=== PATIENT | female | born 1975 | race Hispanic/Latino ===

== ENCOUNTER 2018-01-02 09:24 | Emergency (ER) | payer BC ==
[2018-01-02 09:42] VITALS: RESP 16
[2018-01-02] MEDS ORDERED: Sodium Chloride 0.9% 1,000 ML IV STA (09:55)
--- NOTE | 2018-01-02 10:08 | ED PDOC ---
HPI: Abdomen Time Seen by Provider: 01/02/18 09:38 Chief Complaint (Nursing): Abdominal Pain History Per: Patient Additional Complaint(s): Pt. states since 12/31/2017 she's had LLQ and suprapubic pain but greatest in LLQ. States she contacted Dr. Finn who advised her to come to ED for further evaluation. Reports pain is associated with nausea but no vomiting. Denies dysuria, hematuria, fever, diarrhea, constipation, chest pain. Past Medical History Reviewed: Historical Data, Nursing Documentation, Vital Signs Vital Signs: Last Vital Signs Temp 98.3 F 01/02/18 14:18 Pulse 74 01/02/18 14:18 Resp 16 01/02/18 14:18 BP 126/78 01/02/18 14:18 Pulse Ox 100 01/02/18 14:18 - Surgical History Other surgeries: L oopherectomy, laparascopy x 3 (endometriosis) - Family History Family History: States: No Known Family Hx - Home Medications Home Medications: Ambulatory Orders Medication Instructions Recorded Levothyroxine [Synthroid] 75 mcg PO DAILY 01/02/18 metFORMIN [glucOPHAGE] 500 mg PO BID 01/02/18 - Allergies Allergies/Adverse Reactions: Allergies Allergy/AdvReac Type Severity Reaction Status Date / Time gluten Allergy VOMITING Verified 01/02/18 10:16 lactase [From Dairy Aid] Allergy VOMITING Verified 01/02/18 10:16 shellfish derived Allergy ANAPHYLAXIS Verified 01/02/18 10:16 soy Allergy VOMITING Verified 01/02/18 10:16 paper tape Allergy URTICARIA Uncoded 01/02/18 10:16 Review of Systems ROS Statement: Except As Marked, All Systems Reviewed And Found Negative Gastrointestinal: Positive for: Nausea, Abdominal Pain Genitourinary Female: Positive for: Pelvic Pain Physical Exam - Physical Exam Appears: Positive for: Well, Non-toxic, No Acute Distress Skin: Positive for: Normal Color, Warm. Negative for: Rash Eye Exam: Positive for: Normal appearance Gastrointestinal/Abdominal: Positive for: Normal Exam, Soft, Tenderness ( moderate LLQ and suprapubic tenderness). Negative for: Distended, Guarding, Rebound Neurologic/Psych: Positive for: Alert, Oriented - Laboratory Results Result Diagrams: 01/02/18 10:15 01/02/18 10:15 - ECG ECG: Positive for: Interpreted By Me ECG Rhythm: Positive for: Sinus Bradycardia. Negative for: ST/T Changes Rate: 59 O2 Sat by Pulse Oximetry: 97 - Radiology X-Ray: Read By Radiologist (CXR) X-Ray Interpretation: No Acute Disease - Progress ED Course And Treament: Case d/w Dr. Finn who requests that pt. be prepped for the OR today and does not want any imaging tests at this time. Labs, EKG, CXR, IV NS hydration ordered. Pt. kept NPO. Pt. informed of plan and agrees. Offered antiemetics but refused. States she gets panic attacks from Zofran. 1045 Dr. Finn in ED and evaluated pt. [address] Finn who is requesting that pt. be given scopolamine patch for nausea. Scopolamine patch ordered. [address] Finn there currently technical difficulties in OR therefore pt. will be transferred to [facility] under his care and he will also be the receiving physician. 1311 Pt. aware of plan and agrees with care. Consent for transfer obtained and signed by patient. Disposition - Clinical Impression Clinical Impression: Abdominal pain, Pelvic pain - Patient ED Disposition Is Patient to be Admitted: Yes - Disposition Disposition: Other Institution ([facility]) Disposition Time: 10:00 Condition: STABLE
[2018-01-02 10:25] LABS: BASO % 0.8 % (0.0-2.0); EOS # 0.1 K/uL (0.0-0.7); EOS % 1.7 % (0.0-4.0); HEMOGLOBIN 13.1 g/dL (12.0-16.0); LYMPH % 31.3 % (20.0-40.0); MEAN CELL VOLUME 87.1 fl (81.0-99.0); MEAN CORPUSCULAR HEMOGLOBIN 29.5 pg (27.0-31.0); MEAN CORPUSCULAR HGB CONC 33.8 g/dL (33.0-37.0); MEAN PLATELET VOLUME 10.2 fl (7.2-11.7); MONO # 0.5 K/uL (0.0-0.8); MONO % 7.7 % (0.0-10.0); NEUT # 3.7 K/uL (1.8-7.0); NEUT % 58.5 % (50.0-75.0); NRBC % 0.1 % (0.0-0.0); RBC 4.46 Mil/uL (3.80-5.20); RED CELL DISTRIBUTION WIDTH 13.2 % (11.5-14.5); WHITE BLOOD COUNT 6.3 K/uL (4.8-10.8)
[2018-01-02 10:33] LABS: PARTIAL THROMBOPLASTIN TIME 32.9 Seconds (25.6-37.1); PROTHROMBIN TIME 11.6 Seconds (9.8-13.1)
[2018-01-02 10:40] LABS: ALB/GLOB RATIO 1.5 (1.0-2.1); ALBUMIN 4.5 g/dL (3.5-5.0); ALT/SGPT 25 U/L (9-52); AST/SGOT 26 U/L (14-36); BLOOD UREA NITROGEN 16 mg/dl (7-17); CALCIUM 9.4 mg/dL (8.4-10.2); GFR AFRICAN-AMERICAN > 60; GFR NON-AFRICAN AMERICAN > 60
--- NOTE | 2018-01-02 11:30 | RAD ---
HISTORY: clearance COMPARISON: No prior. FINDINGS: LUNGS: No active pulmonary disease. PLEURA: No significant pleural effusion identified, no pneumothorax apparent. CARDIOVASCULAR: Normal. OSSEOUS STRUCTURES: No significant abnormalities. VISUALIZED UPPER ABDOMEN: Normal. OTHER FINDINGS: None. IMPRESSION: No active disease.
[2018-01-02 11:31] LABS: SQUAMOUS EPITHIAL 1 /hpf (0-5); URINE BILIRUBIN NEGATIVE (NEGATIVE); URINE BLOOD NEGATIVE (NEGATIVE); URINE CLARITY SLIGHTY-CLOUDY (Clear); URINE COLOR YELLOW (YELLOW); URINE GLUCOSE (UA) NEG (Normal); URINE LEUKOCYTE ESTERASE NEG Leu/uL (Negative); URINE PROTEIN NEGATIVE (NEGATIVE); URINE UROBILINOGEN 0.2-1.0 mg/dL (0.2-1.0)
[2018-01-02 13:54] VITALS: BP 126/78; TEMP 98.3
[2018-01-02 14:52] VITALS: PULSE 59; O2SAT 97
[2018-01-02 20:22] VITALS: BMI 29.7
--- NOTE | 2018-01-05 11:07 | CARD ---
APPROVED REPORT EKG Measurement Heart [id number] NC 140P34 [id number] <Conclusion> Sinus bradycardia Otherwise normal ECG
== END 2018-01-02 14:21 | disposition home or self-care (01) ==
LOC: H.ER 09:24 → UNDOADMIN 10:03 → H.ERHOLD 10:03 → UNDODISIN 14:21 → H.ER 14:21
DX: R10.32 Left lower quadrant pain (principal); R10.2 Pelvic and perineal pain
CPT/HCPCS: 71045; 80053; 81003; 81025; 85025; 85610; 85730; 86850; 86900; 93005; 99283; J7030

== ENCOUNTER 2018-11-04 08:08 | Inpatient (IN) | payer BC ==
[2018-11-04 08:13] VITALS: BMI 32.4
[2018-11-04] MEDS ORDERED: Sodium Chloride 0.9% 1,000 ML IV STA (08:31)
--- NOTE | 2018-11-04 08:35 | ED PDOC ---
HPI: Abdomen Time Seen by Provider: 11/04/18 08:16 History Per: Patient Onset/Duration Of Symptoms: Days (3) Current Symptoms Are (Timing): Still Present Severity: Moderate Location Of Pain/Discomfort: Periumbilical Associated Symptoms: Nausea. denies: Vomiting, Diarrhea Exacerbating Factors: Movement, Other (BM) Alleviating Factors: None Last Bowel Movement: Days Ago (3) Additional Complaint(s): Reffetred by PMD for right periumbilical pain assoc with nausea which has gotten worse over past 3 days. Denies vomiting or diarrhea. Last BM Friday but ias able to pass gas. Pt has h/o ventral hernia, PMD feels that it is now incarcerated. Pt also has h/o endometriosis as well as umbilical reconstruction. Pt also describes discharge from umbilicus. Past Medical History Vital Signs: Last Vital Signs Temp 97.8 F 11/04/18 08:11 Pulse 88 11/04/18 08:11 Resp 20 11/04/18 08:11 BP 136/84 11/04/18 08:11 Pulse Ox 96 11/04/18 08:11 - Medical History Other PMH: Endometriosis - Surgical History Other surgeries: Umbilical reconstruction - Family History Family History: States: Unknown Family Hx - Home Medications Home Medications: Ambulatory Orders Medication Instructions Recorded Levothyroxine [Synthroid] 75 mcg PO DAILY 01/02/18 metFORMIN [glucOPHAGE] 500 mg PO BID 01/02/18 - Allergies Allergies/Adverse Reactions: Allergies Allergy/AdvReac Type Severity Reaction Status Date / Time gluten Allergy VOMITING Verified 11/04/18 08:35 lactase [From Dairy Aid] Allergy VOMITING Verified 11/04/18 08:35 shellfish derived Allergy ANAPHYLAXIS Verified 11/04/18 08:35 soy Allergy VOMITING Verified 11/04/18 08:35 ondansetron [From Zofran] AdvReac Intermediate DIZZINESS Verified 11/04/18 08:35 paper tape Allergy URTICARIA Uncoded 11/04/18 08:35 Review of Systems Constitutional: Negative for: Fever Gastrointestinal: Positive for: Nausea, Abdominal Pain, Constipation. Negative for: Vomiting, Diarrhea Genitourinary Female: Negative for: Dysuria, Frequency Physical Exam - Reviewed Nursing Documentation Reviewed: Yes Vital Signs Reviewed: Yes - Physical Exam Appears: Positive for: Well, Non-toxic, No Acute Distress Head Exam: Positive for: ATRAUMATIC, NORMAL INSPECTION, NORMOCEPHALIC Skin: Positive for: Normal Color, Warm, DRY Eye Exam: Positive for: Normal appearance Gastrointestinal/Abdominal: Positive for: Tenderness (Tenderness right periumbilical area with protrusion of ventral hernia when coughing or increasing intra-abdominal pressure.) Back: Positive for: Normal Inspection Extremity: Positive for: Normal ROM Neurological/Psych: Positive for: Awake, Alert, Normal Tone - Laboratory Results Result Diagrams: 11/04/18 08:52 11/04/18 08:52 - ECG O2 Sat by Pulse Oximetry: 96 Disposition - Clinical Impression Clinical Impression: Ventral hernia - Patient ED Disposition Is Patient to be Admitted: Yes - Disposition Disposition Time: 12:51 Condition: FAIR - Pt Status Changed To: Hospital Disposition Of: Inpatient - Admit Certification Admit to Inpatient:: After my assessment, the patient will require hospitalization for at least two midnights. This is because of the severity of symptoms shown, intensity of services needed, and/or the medical risk in this patient being treated as an outpatient. - POA Present On Arrival: None
[2018-11-04 09:08] LABS: BASO % 0.7 % (0.0-2.0); EOS # 0.1 K/uL (0.0-0.7); EOS % 1.4 % (0.0-4.0); HEMOGLOBIN 13.9 g/dL (12.0-16.0); LYMPH # 2.4 K/uL (1.0-4.3); LYMPH % 34.4 % (20.0-40.0); MEAN CORPUSCULAR HEMOGLOBIN 29.6 pg (27.0-31.0); MEAN PLATELET VOLUME 10.6 fl (7.2-11.7); MONO # 0.5 K/uL (0.0-0.8); MONO % 7.9 % (0.0-10.0); NEUT # 3.8 K/uL (1.8-7.0); NEUT % 55.6 % (50.0-75.0); NRBC % 0.2 % (0.0-0.0); RBC 4.71 Mil/uL (3.80-5.20); RED CELL DISTRIBUTION WIDTH 12.5 % (11.5-14.5); WHITE BLOOD COUNT 6.8 K/uL (4.8-10.8)
[2018-11-04 09:15] LABS: ALB/GLOB RATIO 1.5 (1.0-2.1); ALBUMIN 4.5 g/dL (3.5-5.0); ALT/SGPT 27 U/L (9-52); AST/SGOT 24 U/L (14-36); BLOOD UREA NITROGEN 14 mg/dl (7-17); CALCIUM 9.7 mg/dL (8.4-10.2); GFR NON-AFRICAN AMERICAN > 60
--- NOTE | 2018-11-04 12:29 | US ---
Date of service: 11/04/2018 PROCEDURE: Limited abdominal ultrasound HISTORY: Right periumbilical hernia, r/o incarceration COMPARISON: None TECHNIQUE: Standard protocol for this study/examination. FINDINGS: LIVER: By history there is a periumbilical hernia. At the site of the anatomic findings on physical examination labeled "right periumbilical area" is a fluid-filled soft tissue mass 4.7 x 5.8 cm. This likely represents herniated loop of bowel. Peristalsis was not identified. IMPRESSION: Right periumbilical soft tissue mass likely herniated bowel. Follow-up recommendation: CT scan of the abdomen and pelvis for confirmation.
--- NOTE | 2018-11-04 12:56 | CARD ---
APPROVED REPORT Date of service: 11/04/2018 EKG Measurement Heart [id number] [place] 148P27 [id number] <Conclusion> Normal sinus rhythm Normal ECG
[2018-11-04] MEDS ORDERED: Trimethobenzamide 200 mg/2 mL Inj IM ONE ×2 (13:13→13:31)
[2018-11-04] MEDS ORDERED: Bupivacaine HCl 0.25% PF (30 ml) Inj ONE (13:16)
[2018-11-04] MEDS ORDERED: Bupivacaine 0.5% Inj(30mL) ONE (13:16)
[2018-11-04] MEDS ORDERED: Succinylcholine Chloride 20 mg/ml Syr (5 ml) IV ONE (13:56)
[2018-11-04] MEDS ORDERED: Lidocaine 4% (Laryng-O-Jet) Kit MM ONE (13:56)
[2018-11-04] MEDS ORDERED: Rocuronium 10 mg/ml (5 ml) ONE (13:56)
[2018-11-04] MEDS ORDERED: Propofol 10 mg/ml Inj (20 ML) ONE (13:56)
[2018-11-04 14:08] LABS: INR 1.1; PROTHROMBIN TIME 12.7 Seconds (9.8-13.1)
[2018-11-04 14:11] LABS: PARTIAL THROMBOPLASTIN TIME 36.8 Seconds (25.6-37.1)
[2018-11-04] MEDS ORDERED: Midazolam 2 MG/2 ML VIAL ONE (14:17)
[2018-11-04] MEDS ORDERED: Lactated Ringer's 1,000 ML IV ONE ×4 (14:20→17:30)
--- NOTE | 2018-11-04 14:26 | RAD ---
Date of service: 11/04/2018 HISTORY: cough COMPARISON: 01/02/2018 TECHNIQUE: 1 view obtained. FINDINGS: LUNGS: No active pulmonary disease. PLEURA: No significant pleural effusion identified, no pneumothorax apparent. CARDIOVASCULAR: No aortic atherosclerotic calcification present. Normal cardiac size. No pulmonary vascular congestion. OSSEOUS STRUCTURES: No significant abnormalities. VISUALIZED UPPER ABDOMEN: Normal. OTHER FINDINGS: None. IMPRESSION: No active disease. No interval pathology noted.
[2018-11-04] MEDS ORDERED: Dexamethasone 4 mg/1 ml ONE (14:59)
[2018-11-04] MEDS ORDERED: Desflurane Inhalation Anesthetic Liq (240 ml) ONE (15:35)
[2018-11-04] MEDS ORDERED: Bupivacaine 0.25% 300 ML in Sodium Chloride 0.9% 300 ML IS ONE ×3 (15:36→20:00)
[2018-11-04] MEDS: HYDROmorphone 0.5 mg/0.5 ml ISec IVP PRN ×6 (18:32→20:47)
[2018-11-04] MEDS ORDERED: HYDROmorphone 0.5 mg/0.5 ml ISec ONE ×5 (18:32→19:05)
[2018-11-04] MEDS ORDERED: Lactated Ringer's 1,000 ML IV SCH (18:45)
--- NOTE | 2018-11-04 18:45 | PCM.SURG1 ---
Surgeon's Initial Post Op Note - Surgeon's Notes Surgeon: Dr. Hernan Ceja Fat Purification Worker: Eileen Dangelo, PGY-2 Type of Anesthesia: General Endo Anesthesia Administered By: Dr. Man Pre-Operative Diagnosis: Incarcerated incisional ventral hernia Operative Findings: Incarcerated incisional ventral hernia Post-Operative Diagnosis: Incarcerated incision ventral hernia Operation Performed: Component separation, reduction of incarcerated incisional ventral hernia, [place] Stoppa retrorectus hernia repair, with drain placement and OnQ placement Specimen/Specimens Removed: exces abdominal wall Estimated Blood Loss: EBL {In ML}: 300 Blood Products Given: N/A Drains Used: Shawn Guevara (x2) Post-Op Condition: Fair Date of Surgery/Procedure: 11/04/18 Time of Surgery/Procedure: 18:45
[2018-11-04] MEDS ORDERED: SODIUM CHLORIDE 0.9% IS ONE (18:59)
[2018-11-04] MEDS ORDERED: BUPIVACAINE 0.25% IS ONE (18:59)
[2018-11-04] MEDS ORDERED: Dextrose 50% SYRINGE Inj (50 ml) IV PRN (19:11)
[2018-11-04] MEDS ORDERED: Glucagon Recombinant 1 mg Inj IM PRN (19:11)
[2018-11-04] MEDS: ceFAZolin 2 GM in Sodium Chloride 0.9% 100 ML IVPB SCH (22:12)
[2018-11-04] MEDS: Potassium Ch 20mEq in D5-1/2NS 1,000 ML IV SCH (23:00)
[2018-11-04] MEDS ORDERED: DiphenhydrAMINE 50 mg/ml Inj IVP STA (23:05)
[2018-11-05] MEDS: Insulin Regular 100 units/ml SC SCH ×3 (06:21→12:17)
[2018-11-05] MEDS: Potassium Ch 20mEq in D5-1/2NS 1,000 ML IV SCH (06:29)
[2018-11-05] MEDS: Levothyroxine 75 MCG TAB PO SCH (06:33)
[2018-11-05 07:06] LABS: BASO % 0.2 % (0.0-2.0); EOS % 0.1 % (0.0-4.0); LYMPH # 1.8 K/uL (1.0-4.3); LYMPH % 14.9 % (20.0-40.0); MEAN CELL VOLUME 87.3 fl (81.0-99.0); MEAN CORPUSCULAR HEMOGLOBIN 29.2 pg (27.0-31.0); MEAN CORPUSCULAR HGB CONC 33.5 g/dL (33.0-37.0); MEAN PLATELET VOLUME 10.5 fl (7.2-11.7); MONO % 8.1 % (0.0-10.0); NEUT # 9.5 K/uL (1.8-7.0); NEUT % 76.7 % (50.0-75.0); RBC 3.77 Mil/uL (3.80-5.20); RED CELL DISTRIBUTION WIDTH 12.5 % (11.5-14.5); WHITE BLOOD COUNT 12.4 K/uL (4.8-10.8)
[2018-11-05 07:22] LABS: ALB/GLOB RATIO 1.4 (1.0-2.1); ALBUMIN 3.5 g/dL (3.5-5.0); ALT/SGPT 29 U/L (9-52); AST/SGOT 25 U/L (14-36); BLOOD UREA NITROGEN 14 mg/dl (7-17); CALCIUM 8.3 mg/dL (8.4-10.2); GFR NON-AFRICAN AMERICAN > 60
--- NOTE | 2018-11-05 07:58 | CP.PCM.PN ---
Subjective - Date & Time of Evaluation Date of Evaluation: 11/05/18 Time of Evaluation: 07:30 - Subjective Subjective: Plastic/General surgery/Obgyn progress note for Dr. Becerra, Dr. Finn, and Dr. Jennie Dangelo, PGY-2 Pt seen/examined at bedside Pt reports some pain overnight, was asking for Toradol overnight. Voiding overnight with assistance to get up out of bed. Denies N & V, tolerating sips and chips. Objective - Vital Signs/Intake and Output Vital Signs (last 24 hours): Temp Pulse Resp BP Pulse Ox 97.9 F 81 18 121/74 98 11/05/18 01:00 11/05/18 01:00 11/05/18 01:37 11/05/18 01:00 11/05/18 01:37 Intake and Output: 11/05/18 11/05/18 06:59 18:59 Intake Total 1440 Output Total 35 60 Balance -35 1380 - Medications Medications: Current Medications Dextrose (Dextrose 50% Inj) 0 ml IV STAT PRN; Protocol PRN Reason: Hypoglycemia Protocol Dextrose (Glutose 15) 0 gm PO ONCE PRN; Protocol PRN Reason: Hypoglycemia Protocol Fluconazole (Diflucan) 200 mg PO DAILY [facility]; Protocol Fluticasone Propionate (Flonase) 1 spr ROBERT BID [facility] Last Admin: 11/04/18 20:00 Dose: 1 spr Glucagon (Glucagen Diagnostic Kit) 0 mg IM STAT PRN; Protocol PRN Reason: Hypoglycemia Protocol Hydromorphone HCl (Dilaudid) 1 mg IVP Q4 PRN PRN Reason: Pain, severe (8-10) Last Admin: 11/05/18 04:05 Dose: 1 mg Acetaminophen (Ofirmev) 100 mls @ 400 mls/hr IVPB Q6H [facility]; Protocol Stop: 11/05/18 13:16 Last Admin: 11/05/18 06:41 Dose: 400 mls/hr Cefazolin Sodium 2 gm/ Sodium (Chloride) 100 mls @ 100 mls/hr IVPB Q12 [facility]; Protocol Stop: 11/05/18 21:01 Last Admin: 11/04/18 22:12 Dose: 100 mls/hr Potassium Chloride/Dextrose/Sod Cl (Potassium Chl 20 Meq In D5-1/2ns) 1,000 mls @ 125 mls/hr IV .Q8H [facility] Last Admin: 11/05/18 06:29 Dose: 125 mls/hr Bupivacaine HCl 300 ml/ Sodium (Chloride) 600 mls @ 3 mls/hr IS .Q24H ONE Stop: 11/05/18 19:59 Last Admin: 11/04/18 20:19 Dose: 0 mls Insulin Human Regular (Humulin R) 0 units SC Q6H [facility]; Protocol Last Admin: 11/05/18 06:21 Dose: Not Given Levothyroxine Sodium (Synthroid) 75 mcg PO DAILY@0630 [facility] Last Admin: 11/05/18 06:33 Dose: Not Given - Labs Labs: 11/05/18 06:30 11/05/18 06:30 PT 12.7 Seconds (9.8-13.1) 11/04/18 13:55 INR 1.1 11/04/18 13:55 APTT 36.8 Seconds (25.6-37.1) 11/04/18 13:55 - Constitutional Appears: Non-toxic, No Acute Distress - Head Exam Head Exam: ATRAUMATIC, NORMAL INSPECTION, NORMOCEPHALIC - Eye Exam Eye Exam: EOMI, Normal appearance - ENT Exam ENT Exam: Mucous Membranes Moist, Normal Exam - Neck Exam Neck Exam: Full ROM, Normal Inspection - Respiratory Exam Respiratory Exam: NORMAL BREATHING PATTERN - Cardiovascular Exam Cardiovascular Exam: REGULAR RHYTHM, +S1, +S2 - GI/Abdominal Exam GI & Abdominal Exam: Soft, Tenderness (along incision site w/prevena wound vac in place). absent: Distended, Firm, Guarding, Rigid Additional comments: WILIAM x 1 via pelvis with serosanguinous output overnight - Extremities Exam Extremities Exam: Normal Inspection - Neurological Exam Neurological Exam: Alert, Awake, CN II-XII Intact, Oriented x3 - Psychiatric Exam Psychiatric exam: Normal Affect, Normal Mood - Skin Skin Exam: Dry, Intact, Normal Color, Warm Assessment and Plan - Assessment and Plan (Free Text) Assessment: 42F reduction of incarcerated incisional ventral hernia, [place] Stoppa retrorectus hernia repair, with drain placement and OnQ placement POD#1 Plan: Pain control via OnQ and Dilaudid, added Toradol Ancef to be d/c'd today Head of bed and foot of bed to 30 degrees Ambulate hunched over Encourage IS use Intake and output PT evaluation Further recs pending attending evaluation Will DW attendings Loreto, PGY-2
[2018-11-05] MEDS ORDERED: Magnesium Sulfate 2 gm/50 ml 2 GM/50 ML BAG IVPB ONE (08:02)
[2018-11-05] MEDS: ceFAZolin 2 GM in Sodium Chloride 0.9% 100 ML IVPB SCH ×2 (11:06→21:07)
[2018-11-05] MEDS ORDERED: DiphenhydrAMINE 50 mg/ml Inj IVP ONE (23:00)
[2018-11-06] MEDS: Levothyroxine 75 MCG TAB PO SCH (06:50)
[2018-11-06 08:17] LABS: BASO % 0.2 % (0.0-2.0); EOS # 0.2 K/uL (0.0-0.7); EOS % 1.9 % (0.0-4.0); HEMOGLOBIN 10.7 g/dL (12.0-16.0); LYMPH # 2.3 K/uL (1.0-4.3); LYMPH % 24.5 % (20.0-40.0); MEAN CELL VOLUME 88.3 fl (81.0-99.0); MEAN CORPUSCULAR HEMOGLOBIN 29.4 pg (27.0-31.0); MEAN CORPUSCULAR HGB CONC 33.3 g/dL (33.0-37.0); MEAN PLATELET VOLUME 10.2 fl (7.2-11.7); MONO # 0.6 K/uL (0.0-0.8); MONO % 6.5 % (0.0-10.0); NEUT # 6.2 K/uL (1.8-7.0); NEUT % 66.9 % (50.0-75.0); RBC 3.63 Mil/uL (3.80-5.20); RED CELL DISTRIBUTION WIDTH 12.7 % (11.5-14.5); WHITE BLOOD COUNT 9.2 K/uL (4.8-10.8)
[2018-11-06 08:58] LABS: ALB/GLOB RATIO 1.2 (1.0-2.1); ALBUMIN 3.3 g/dL (3.5-5.0); ALT/SGPT 20 U/L (9-52); AST/SGOT 27 U/L (14-36); BLOOD UREA NITROGEN 6 mg/dl (7-17); CALCIUM 8.3 mg/dL (8.4-10.2); GFR NON-AFRICAN AMERICAN > 60
--- NOTE | 2018-11-06 09:05 | CP.PCM.PN ---
Subjective - Date & Time of Evaluation Date of Evaluation: 11/06/18 Time of Evaluation: 08:00 - Subjective Subjective: Plastic/General surgery/Obgyn progress note for Dr. Becerra, Dr. Finn, and Dr. Jennie Dangelo, PGY-2 Pt seen/examined at bedside Pt reports having problems getting pain medications for her pain overnight, she also is having back pain from the bed & having to stay in the same position for healing. Also having pain at WILIAM insertion sites. Pt requesting a recliner to allow her to be out of bed. Is slightly hungry- had some crackers overnight, no N or V. Voiding. Objective - Vital Signs/Intake and Output Vital Signs (last 24 hours): Temp Pulse Resp BP Pulse Ox 98.8 F 101 H 20 124/75 94 L 11/06/18 05:00 11/06/18 05:00 11/06/18 05:00 11/06/18 05:00 11/06/18 05:00 Intake and Output: 11/06/18 11/06/18 06:59 18:59 Intake Total 1060 Output Total 120 Balance 940 - Medications Medications: Current Medications Fluconazole (Diflucan) 200 mg PO DAILY [facility]; Protocol Fluticasone Propionate (Flonase) 1 spr ROBERT BID [facility] Last Admin: 11/05/18 16:05 Dose: Not Given Hydromorphone HCl (Dilaudid) 1 mg IVP Q4 PRN PRN Reason: Pain, severe (8-10) Last Admin: 11/05/18 22:46 Dose: 1 mg Ketorolac Tromethamine (Toradol) 15 mg IVP Q6 PRN PRN Reason: Pain, moderate (4-7) Last Admin: 11/06/18 04:33 Dose: 15 mg Levothyroxine Sodium (Synthroid) 75 mcg PO DAILY@0630 [facility] Last Admin: 11/06/18 06:50 Dose: Not Given - Labs Labs: 11/06/18 07:45 11/06/18 07:50 PT 12.7 Seconds (9.8-13.1) 11/04/18 13:55 INR 1.1 11/04/18 13:55 APTT 36.8 Seconds (25.6-37.1) 11/04/18 13:55 - Constitutional Appears: Non-toxic, No Acute Distress - Head Exam Head Exam: ATRAUMATIC, NORMAL INSPECTION, NORMOCEPHALIC - Eye Exam Eye Exam: EOMI, Normal appearance - ENT Exam ENT Exam: Mucous Membranes Moist, Normal Exam - Neck Exam Neck Exam: Full ROM - Respiratory Exam Respiratory Exam: NORMAL BREATHING PATTERN - Cardiovascular Exam Cardiovascular Exam: REGULAR RHYTHM - GI/Abdominal Exam GI & Abdominal Exam: Soft, Tenderness (along incision site). absent: Distended, Firm, Guarding, Rigid, Diminished Bowel Sounds Additional comments: abdominal binder in place, WILIAM in pelvis x 2 with serosanguinous output, L with 2 cc, R with 5 - Extremities Exam Extremities Exam: Normal Inspection - Neurological Exam Neurological Exam: Alert, Awake, CN II-XII Intact, Oriented x3 - Psychiatric Exam Psychiatric exam: Normal Affect, Normal Mood - Skin Skin Exam: Dry, Intact, Normal Color, Warm Assessment and Plan - Assessment and Plan (Free Text) Assessment: 42F reduction of incarcerated incisional ventral hernia, [place] Stoppa retrorectus hernia repair, with drain placement and OnQ placement POD#2, doing well Plan: Pain control via OnQ, Dilaudid & Toradol Head of bed and foot of bed to 30 degrees Ambulate hunched over Encourage IS use Intake and output Continue to work with PT Ok for regular diet Please place recliner in pt's room Further recs pending attending evaluation Will DW attendings [place], PGY-2
[2018-11-06] MEDS ORDERED: Bupivacaine 0.25% 300 ML in Sodium Chloride 0.9% 300 ML IS ONE (15:10)
[2018-11-07] MEDS: guaiFENesin-DM 600-30 mg ER Tab PO SCH ×3 (00:14→17:23)
[2018-11-07 06:31] LABS: BASO % 0.5 % (0.0-2.0); EOS # 0.2 K/uL (0.0-0.7); EOS % 2.8 % (0.0-4.0); HEMOGLOBIN 9.8 g/dL (12.0-16.0); LYMPH # 2.4 K/uL (1.0-4.3); LYMPH % 37.1 % (20.0-40.0); MEAN CELL VOLUME 87.1 fl (81.0-99.0); MEAN CORPUSCULAR HEMOGLOBIN 29.8 pg (27.0-31.0); MEAN CORPUSCULAR HGB CONC 34.2 g/dL (33.0-37.0); MEAN PLATELET VOLUME 9.5 fl (7.2-11.7); MONO # 0.6 K/uL (0.0-0.8); MONO % 8.9 % (0.0-10.0); NEUT # 3.3 K/uL (1.8-7.0); NEUT % 50.7 % (50.0-75.0); NRBC % 0.2 % (0.0-0.0); RBC 3.28 Mil/uL (3.80-5.20); RED CELL DISTRIBUTION WIDTH 12.7 % (11.5-14.5); WHITE BLOOD COUNT 6.5 K/uL (4.8-10.8)
[2018-11-07 06:39] LABS: ALB/GLOB RATIO 1.2 (1.0-2.1); ALBUMIN 3.3 g/dL (3.5-5.0); ALT/SGPT 26 U/L (9-52); AST/SGOT 26 U/L (14-36); BLOOD UREA NITROGEN 8 mg/dl (7-17); CALCIUM 8.3 mg/dL (8.4-10.2); GFR NON-AFRICAN AMERICAN > 60
[2018-11-07] MEDS: Levothyroxine 75 MCG TAB PO SCH (07:36)
--- NOTE | 2018-11-07 09:40 | CP.PCM.PN ---
Subjective - Date & Time of Evaluation Date of Evaluation: 11/07/18 Time of Evaluation: 09:15 - Subjective Subjective: General Surgery/OBGYN Progress Note 42F seen and evaluated at bedside this morning. No acute events overnight. Patient complaining of dry mouth this morning. Mild abdominal tenderness and pruritus with abdominal binder. Prevena wound vac in place. WILIAM draining serosanguinous output, L 50cc, R 25cc. Voiding, tolerating diet. Denies f/c, n/v/d, SOB, CP. Objective - Vital Signs/Intake and Output Vital Signs (last 24 hours): Temp Pulse Resp BP Pulse Ox 98.2 F 92 H 20 142/88 94 L 11/07/18 06:30 11/07/18 06:30 11/07/18 06:30 11/07/18 06:30 11/07/18 06:30 - Medications Medications: Current Medications Acetaminophen (Tylenol 325mg Tab) 650 mg PO Q4H PRN PRN Reason: Pain, Mild (1-3) Diphenhydramine HCl (Benadryl) 25 mg PO HS PRN PRN Reason: Insomnia Fluconazole (Diflucan) 200 mg PO DAILY [facility]; Protocol Stop: 11/10/18 09:01 Fluticasone Propionate (Flonase) 1 spr ROBERT BID [facility] Last Admin: 11/07/18 09:02 Dose: 1 spr Guaifenesin/Dextromethorphan (Mucinex-Dm 600-30 Mg) 1 tab PO BID [facility] Last Admin: 11/07/18 09:03 Dose: 1 tab Heparin Sodium (Porcine) (Heparin) 5,000 units SC Q8@0700,1500,2300 [facility]; Protocol Last Admin: 11/07/18 07:11 Dose: 5,000 units Hydromorphone HCl (Dilaudid) 1 mg IVP Q4 PRN PRN Reason: Pain, severe (8-10) Last Admin: 11/06/18 23:44 Dose: 1 mg Bupivacaine HCl 300 ml/ Sodium (Chloride) 600 mls @ 7 mls/hr IS .Q24H ONE Stop: 11/07/18 15:09 Last Admin: 11/06/18 18:49 Dose: 7 mls/hr Ketorolac Tromethamine (Toradol) 15 mg IVP Q6 PRN PRN Reason: Pain, moderate (4-7) Last Admin: 11/07/18 06:54 Dose: 15 mg Levothyroxine Sodium (Synthroid) 75 mcg PO DAILY@0630 [facility] Last Admin: 11/07/18 07:36 Dose: Not Given Scopolamine (Transderm-Scop) 1 patch TD Q3D [facility] - Labs Labs: 11/07/18 05:58 11/07/18 05:58 PT 12.7 Seconds (9.8-13.1) 11/04/18 13:55 INR 1.1 11/04/18 13:55 APTT 36.8 Seconds (25.6-37.1) 11/04/18 13:55 - Constitutional Appears: Well, Non-toxic, No Acute Distress - Head Exam Head Exam: ATRAUMATIC, NORMAL INSPECTION, NORMOCEPHALIC - Eye Exam Eye Exam: EOMI - ENT Exam ENT Exam: Mucous Membranes Moist - Respiratory Exam Respiratory Exam: Clear to Ausculation Bilateral, NORMAL BREATHING PATTERN. absent: Respiratory Distress - Cardiovascular Exam Cardiovascular Exam: REGULAR RHYTHM, +S1, +S2. absent: Murmur - GI/Abdominal Exam GI & Abdominal Exam: Soft, Tenderness, Normal Bowel Sounds. absent: Distended - Neurological Exam Neurological Exam: Alert, Awake, Oriented x3 - Psychiatric Exam Psychiatric exam: Normal Affect, Normal Mood - Skin Skin Exam: Dry, Intact, Normal Color, Warm Assessment and Plan - Assessment and Plan (Free Text) Assessment: 42F 42F reduction of incarcerated incisional ventral hernia, [place] Stoppa retrorectus hernia repair, with drain placement and OnQ placement POD3, doing well Plan: Pain control via OnQ, Dilaudid & Toradol PRN Head of bed and foot of bed to 30 degrees Ambulate hunched over Encourage IS use Intake and output Diflucan for 3 days Continue to work with PT Monitor diet tolerance Please place recliner in pt's room Further recs pending attending evaluation Fady Kwok PGY1
[2018-11-07] MEDS ORDERED: Albuterol-Ipratrop 3 mg / 0.5 (3 ml) UD INH STA ×2 (22:45)
[2018-11-08] MEDS: Albuterol-Ipratrop 3 mg / 0.5 (3 ml) UD INH PRN ×3 (05:06→18:32)
--- NOTE | 2018-11-08 06:43 | CP.PCM.PN ---
Subjective - Date & Time of Evaluation Date of Evaluation: 11/08/18 Time of Evaluation: 06:39 - Subjective Subjective: Surgery/OBGYN Progress Note for Dr. Becerra/Dr. Finn 42F seen and evaluated at bedside this morning. Patient resting comfortably in bed this morning. Overnight, patient had some coughing and difficulty breathing, requested duonebs prior to bed which helped. Patient only took Toradol for pain. Patient voiding, ambulating on own, passing flatus per nurse. Afebrile. WILIAM L and R 20cc serosanguinous output overnight. Objective - Vital Signs/Intake and Output Vital Signs (last 24 hours): Temp Pulse Resp BP Pulse Ox 97 F L 85 20 128/77 95 11/08/18 05:00 11/08/18 05:00 11/08/18 05:00 11/08/18 05:00 11/07/18 21:00 Intake and Output: 11/07/18 11/08/18 18:59 06:59 Intake Total 30 Output Total 60 40 Balance -30 -40 - Medications Medications: Current Medications Acetaminophen (Tylenol 325mg Tab) 650 mg PO Q4H PRN PRN Reason: Pain, Mild (1-3) Last Admin: 11/08/18 03:34 Dose: 650 mg Albuterol/Ipratropium (Duoneb 3 Mg/0.5 Mg (3 Ml) Ud) 3 ml INH RQ6 PRN PRN Reason: Shortness of Breath Last Admin: 11/08/18 05:06 Dose: 3 ml Diphenhydramine HCl (Benadryl) 25 mg PO HS PRN PRN Reason: Insomnia Fluconazole (Diflucan) 200 mg PO DAILY [facility]; Protocol Stop: 11/10/18 09:01 Fluticasone Propionate (Flonase) 1 spr ROBERT BID [facility] Last Admin: 11/07/18 17:22 Dose: 1 spr Guaifenesin/Dextromethorphan (Mucinex-Dm 600-30 Mg) 1 tab PO BID [facility] Last Admin: 11/07/18 17:23 Dose: 1 tab Heparin Sodium (Porcine) (Heparin) 5,000 units SC Q8@0700,1500,2300 [facility]; Protoc ol Last Admin: 11/07/18 23:05 Dose: 5,000 units Hydromorphone HCl (Dilaudid) 1 mg IVP Q4 PRN PRN Reason: Pain, severe (8-10) Last Admin: 11/07/18 17:23 Dose: 1 mg Ketorolac Tromethamine (Toradol) 15 mg IVP Q6 PRN PRN Reason: Pain, moderate (4-7) Last Admin: 11/08/18 05:41 Dose: 15 mg Levothyroxine Sodium (Synthroid) 75 mcg PO DAILY@0630 [facility] Last Admin: 11/07/18 07:36 Dose: Not Given Scopolamine (Transderm-Scop) 1 patch TD Q3D [facility] - Labs Labs: 11/07/18 05:58 11/07/18 05:58 PT 12.7 Seconds (9.8-13.1) 11/04/18 13:55 INR 1.1 11/04/18 13:55 APTT 36.8 Seconds (25.6-37.1) 11/04/18 13:55 - Constitutional Appears: Well, Non-toxic, No Acute Distress - Head Exam Head Exam: ATRAUMATIC, NORMAL INSPECTION, NORMOCEPHALIC - Eye Exam Eye Exam: EOMI - ENT Exam ENT Exam: Mucous Membranes Moist - Respiratory Exam Respiratory Exam: NORMAL BREATHING PATTERN. absent: Wheezes, Respiratory Distress - Cardiovascular Exam Cardiovascular Exam: REGULAR RHYTHM, +S1, +S2. absent: Murmur - GI/Abdominal Exam GI & Abdominal Exam: Soft, Tenderness, Normal Bowel Sounds. absent: Distended - Neurological Exam Neurological Exam: Alert, Awake, Oriented x3 - Skin Skin Exam: Dry, Intact, Normal Color, Warm Additional comments: wound vac in place Assessment and Plan - Assessment and Plan (Free Text) Assessment: 42F s/p reduction of incarcerated incisional ventral hernia, [place] Stoppa retrorectus hernia repair, with drain placement and OnQ placement POD4, doing well Plan: Pain control via OnQ, Dilaudid & Toradol PRN Head of bed and foot of bed to 30 degrees Ambulate hunched over Encourage IS use Intake and output Monitor WILIAM drain outputs Diflucan for 2 days Tessalon pearls for cough Continue to work with PT Monitor diet tolerance Please place recliner in pt's room Further recs pending attending evaluation Discharge planning Fady Kwok PGY1
[2018-11-08 07:00] LABS: BASO % 0.3 % (0.0-2.0); EOS # 0.2 K/uL (0.0-0.7); EOS % 2.3 % (0.0-4.0); HEMOGLOBIN 9.9 g/dL (12.0-16.0); LYMPH # 1.7 K/uL (1.0-4.3); LYMPH % 25.4 % (20.0-40.0); MEAN CELL VOLUME 87.2 fl (81.0-99.0); MEAN CORPUSCULAR HEMOGLOBIN 29.5 pg (27.0-31.0); MEAN CORPUSCULAR HGB CONC 33.9 g/dL (33.0-37.0); MEAN PLATELET VOLUME 9.1 fl (7.2-11.7); MONO # 0.5 K/uL (0.0-0.8); MONO % 6.8 % (0.0-10.0); NEUT # 4.4 K/uL (1.8-7.0); NEUT % 65.2 % (50.0-75.0); RBC 3.34 Mil/uL (3.80-5.20); RED CELL DISTRIBUTION WIDTH 12.6 % (11.5-14.5); WHITE BLOOD COUNT 6.7 K/uL (4.8-10.8)
[2018-11-08 07:15] LABS: ALB/GLOB RATIO 1.2 (1.0-2.1); ALBUMIN 3.4 g/dL (3.5-5.0); ALT/SGPT 20 U/L (9-52); AST/SGOT 37 U/L (14-36); BLOOD UREA NITROGEN 10 mg/dl (7-17); CALCIUM 8.7 mg/dL (8.4-10.2); GFR NON-AFRICAN AMERICAN > 60
[2018-11-08] MEDS: guaiFENesin-DM 600-30 mg ER Tab PO SCH ×2 (09:36→16:32)
[2018-11-08 14:10] LABS: SQUAMOUS EPITHIAL < 1 /hpf (0-5); URINE BILIRUBIN NEGATIVE (NEGATIVE); URINE BLOOD NEGATIVE (NEGATIVE); URINE CLARITY CLEAR (Clear); URINE COLOR YELLOW (YELLOW); URINE GLUCOSE (UA) NEG (NEGATIVE); URINE LEUKOCYTE ESTERASE NEG Leu/uL (Negative); URINE PROTEIN NEGATIVE (NEGATIVE); URINE UROBILINOGEN 0.2-1.0 mg/dL (0.2-1.0)
[2018-11-08] MEDS: oxyCODONE 5 mg Immediate Release Tab PO PRN (15:03)
[2018-11-08] MEDS ORDERED: Bupivacaine 0.25% 300 ML in Sodium Chloride 0.9% 300 ML IS ONE (16:06)
--- NOTE | 2018-11-08 16:33 | RAD ---
Date of service: 11/08/2018 HISTORY: post op cough , SOB COMPARISON: Portable chest 11/04/2018. TECHNIQUE: Chest PA and lateral views FINDINGS: LUNGS: Poor inspiratory volume. Linear atelectasis seen at the medial left base and possibly inferior left perihilar region. Limited patchy airspace disease is question at the right perihilar region and retrocardiac left base. Mid and upper lung zones appear grossly clear. PLEURA: No significant pleural effusion identified. No pneumothorax apparent. CARDIOVASCULAR: No aortic atherosclerotic calcification present. Normal cardiac size. No pulmonary vascular congestion. OSSEOUS STRUCTURES: No significant abnormalities. VISUALIZED UPPER ABDOMEN: Normal. OTHER FINDINGS: None. IMPRESSION: [place] effort limits interpretation significantly. Atelectasis is favored medially bilaterally over infiltrates the latter not excluded. Linear atelectasis identified at the mid inferior left lung zone as well.
[2018-11-09] MEDS: oxyCODONE 5 mg Immediate Release Tab PO PRN ×2 (01:33→11:29)
[2018-11-09] MEDS: Albuterol-Ipratrop 3 mg / 0.5 (3 ml) UD INH PRN (01:47)
[2018-11-09 01:50] VITALS: RESP 20
[2018-11-09] MEDS: Levothyroxine 75 MCG TAB PO SCH (06:01)
--- NOTE | 2018-11-09 07:38 | CP.PCM.PN ---
Subjective - Date & Time of Evaluation Date of Evaluation: 11/09/18 Time of Evaluation: 07:37 - Subjective Subjective: Surgery/OBGYN Progress Note for Dr. Becerra/Dr. Finn 42F seen and evaluated at bedside this morning. Patient in NAD , AAOX3. Patient only took Toradol for pain. Patient voiding, ambulating on own, passing flatus per nurse. Afebrile. WILIAM L and R 100cc serosanguinous output overnight. Objective - Vital Signs/Intake and Output Vital Signs (last 24 hours): Temp Pulse Resp BP Pulse Ox 98.9 F 92 H 20 131/86 92 L 11/09/18 05:30 11/09/18 05:30 11/09/18 05:30 11/09/18 05:30 11/09/18 05:30 Intake and Output: 11/09/18 11/09/18 06:59 18:59 Intake Total 610 Output Total 110 Balance 500 - Medications Medications: Current Medications Acetaminophen (Tylenol 325mg Tab) 650 mg PO Q4H PRN PRN Reason: Pain, Mild (1-3) Last Admin: 11/09/18 06:02 Dose: 650 mg Albuterol/Ipratropium (Duoneb 3 Mg/0.5 Mg (3 Ml) Ud) 3 ml INH RQ6 PRN PRN Reason: Shortness of Breath Last Admin: 11/09/18 01:47 Dose: 3 ml Benzonatate (Tessalon Perles) 100 mg PO Q8 PRN PRN Reason: Cough Last Admin: 11/08/18 21:22 Dose: 100 mg Diphenhydramine HCl (Benadryl) 25 mg PO HS PRN PRN Reason: Insomnia Fluconazole (Diflucan) 200 mg PO DAILY SHELLY; Protocol Stop: 11/10/18 09:01 Last Admin: 11/08/18 09:37 Dose: 200 mg Fluticasone Propionate (Flonase) 1 spr ROBERT BID SHELLY Last Admin: 11/08/18 16:31 Dose: 1 spr Guaifenesin/Dextromethorphan (Mucinex-Dm 600-30 Mg) 1 tab PO BID SHELLY Last Admin: 11/08/18 16:32 Dose: 1 tab Heparin Sodium (Porcine) (Heparin) 5,000 units SC Q8@0200,1000,1800 SHELLY; Protocol Last Admin: 11/09/18 01:44 Dose: 5,000 units Hydromorphone HCl (Dilaudid) 1 mg IVP Q4 PRN PRN Reason: Pain, severe (8-10) Last Admin: 11/07/18 17:23 Dose: 1 mg Bupivacaine HCl 300 ml/ Sodium (Chloride) 600 mls @ 7 mls/hr IS .Q24H ONE Stop: 11/09/18 16:05 Last Admin: 11/08/18 18:55 Dose: 7 mls/hr Ketorolac Tromethamine (Toradol) 15 mg IVP Q6 PRN PRN Reason: Pain, moderate (4-7) Last Admin: 11/08/18 21:05 Dose: 15 mg Levothyroxine Sodium (Synthroid) 75 mcg PO DAILY@0630 SHELLY Last Admin: 11/09/18 06:01 Dose: Not Given Oxycodone HCl (Oxycodone Immediate Release Tab) 5 mg PO Q6 PRN PRN Reason: pain 5-8 Last Admin: 11/09/18 01:33 Dose: 5 mg Scopolamine (Transderm-Scop) 1 patch TD Q3D SHELLY - Labs Labs: 11/08/18 05:56 11/08/18 05:56 PT 12.7 Seconds (9.8-13.1) 11/04/18 13:55 INR 1.1 11/04/18 13:55 APTT 36.8 Seconds (25.6-37.1) 11/04/18 13:55 - Constitutional Appears: Well, Non-toxic - Head Exam Head Exam: ATRAUMATIC - Eye Exam Eye Exam: Normal appearance - ENT Exam ENT Exam: Mucous Membranes Moist - GI/Abdominal Exam Additional comments: wound vac intact - Neurological Exam Neurological Exam: Alert, Normal Gait Assessment and Plan - Assessment and Plan (Free Text) Assessment: 42F s/p reduction of incarcerated incisional ventral hernia, [place]opp[place] retrorectus hernia repair, with drain placement and OnQ placement POD5, doing well Plan: Pain control via OnQ, Dilaudid & Toradol PRN Head of bed and foot of bed to 30 degrees Ambulate hunched over Encourage IS use Intake and output Monitor WILIAM drain outputs Continue to work with PT Monitor diet tolerance Please place recliner in pt's room Further recs pending attending evaluation Discharge planning
[2018-11-09] MEDS: guaiFENesin-DM 600-30 mg ER Tab PO SCH (08:31)
[2018-11-09 09:21] LABS: BASO # 0.1 K/uL (0.0-0.2); BASO % 0.9 % (0.0-2.0); EOS # 0.3 K/uL (0.0-0.7); EOS % 3.9 % (0.0-4.0); HEMOGLOBIN 10.8 g/dL (12.0-16.0); LYMPH # 1.7 K/uL (1.0-4.3); LYMPH % 24.1 % (20.0-40.0); MEAN CELL VOLUME 87.9 fl (81.0-99.0); MEAN CORPUSCULAR HEMOGLOBIN 29.6 pg (27.0-31.0); MEAN CORPUSCULAR HGB CONC 33.7 g/dL (33.0-37.0); MEAN PLATELET VOLUME 8.5 fl (7.2-11.7); MONO # 0.4 K/uL (0.0-0.8); MONO % 5.9 % (0.0-10.0); NEUT # 4.7 K/uL (1.8-7.0); NEUT % 65.2 % (50.0-75.0); RBC 3.63 Mil/uL (3.80-5.20); RED CELL DISTRIBUTION WIDTH 12.9 % (11.5-14.5); WHITE BLOOD COUNT 7.2 K/uL (4.8-10.8)
[2018-11-09 09:51] LABS: ALB/GLOB RATIO 1.3 (1.0-2.1); ALBUMIN 3.8 g/dL (3.5-5.0); ALT/SGPT 25 U/L (9-52); AST/SGOT 25 U/L (14-36); BLOOD UREA NITROGEN 8 mg/dl (7-17); CALCIUM 9.1 mg/dL (8.4-10.2); GFR NON-AFRICAN AMERICAN > 60
[2018-11-09] MEDS ORDERED: oxyCODONE 5 mg Immediate Release Tab PO ONE (14:00)
[2018-11-09 15:32] VITALS: BP 133/68; PULSE 81; TEMP 97.8; O2SAT 95
--- NOTE | 2018-11-11 08:57 | OP ---
PROCEDURE DATE: 11/04/2018 SURGEON: Michele Becerra MD HEARING THERAPIST SURGEON: . TERTIARY SURGEON: Eileen Dangelo DO ANESTHESIOLOGIST: Matt Man MD ANESTHESIA: General endotracheal tube anesthesia. PREOPERATIVE DIAGNOSES: 1. Incarcerated ventral hernia. 2. Umbilical sinus/abscess. POSTOPERATIVE DIAGNOSES: 1. Incarcerated ventral hernia. 2. Umbilical sinus/abscess. PROCEDURE PERFORMED: 1. Umbilectomy. 2. Elevation of abdominal fasciocutaneous flap. 3. A 63 cm complex closure of abdominal wound. 4. Placement of On-Q pain pumps. 5. Placement of Prevena incisional wound VAC. INDICATIONS FOR PROCEDURE: Please refer to my separately dictated ER consultation for history and physical. DESCRIPTION OF PROCEDURE: Please refer to operative report for which I assisted and he assisted me as well. The patient was taken to the operating room, placed under general endotracheal tube anesthesia. Perioperative antibiotics were given. SCDs were placed on bilateral lower extremities. The abdomen was prepped and draped in the usual Pfannenstiel manner. General surgery team made a low transverse incision with a #10 blade with electrocautery. The flap was dissected down to the deep muscle fascia and it was elevated superiorly. Once we got to the umbilicus, the umbilicus was kept with #15 blade and Metzenbaum scissors, then we selected the flap and we encountered a very large right incarcerated periumbilical ventral hernia and I was that 8 x 8 cm of incarcerated fat and bowel. We then continued for a flap elevation superiorly up to the xiphoid process in a narrow manner. After doing this, we looked at the umbilicus and there was an old Prolene stitch in there, which was likely the cause of her sinus tract and the hernia compressed the umbilicus, I performed an umbilectomy with electrocautery and removed the umbilicus. and I then did bilateral rectus muscle flap, myofascial repair of her ventral hernia with mesh. When we were done with this part of the operation, we irrigated the wound, and we flexed the position of the bed. There was some extra skin that was tailor tacked and cut out with a #10 blade. It was then left with a 63 cm long incision. We irrigated the wound. We placed two Johnny drains at the subcutaneous space, took it out through the mons pubis, secured in placed with 2-0 silk sutures. We placed two On-Q pumps where they would perform a TAP block through a separate stab incision on the superior aspect of the flap. The abdominal fasciocutaneous flap that we elevated was based on superior perforating artery with the epigastric arteries. The On-Q pump was filled with 0.25% Marcaine. We then closed the 63 cm incision with 0 Vicryl Ramy's fascia sutures, 2-0 Vicryl , then 3-0 Monocryl subcuticular. I then placed Prevena incisional wound VAC over the wound. Abdominal binders secured the drains and Prevena in place. The patient was transferred to the hospital bed in recovery room in stable condition. FINDINGS: As above. ESTIMATED BLOOD LOSS: About 250 mL. COMPLICATIONS: None. CONDITION: Stable. DRAINS: 19 [place] Johnny x2 abdominal wall. SPECIMENS: Hernia sac as well as umbilicus. Michele Becerra MD
--- NOTE | 2018-11-11 09:40 | CON ---
DATE: <>11/04/18 EMERGENCY ROOM CONSULTATION SURGEON: Michele Becerra MD HISTORY OF PRESENT ILLNESS: I was asked to consult by the general surgeon, for assistance in abdominal reconstruction for this 42-year-old female who presented to the emergency room with an incarcerated ventral hernia. The patient has a significant past surgical history with scarring and multiple incisions in the lower abdomen and she also has some intertriginous changes underneath her skin pannus and there was concern for multiple ventral hernias and concern for a sinus tract and need for umbilectomy. So, I was consulted for elevation of abdominal flap as well as umbilectomy. I met the patient in the preop holding area previous scar. There was a scar above the umbilicus on the left side. There was umbilicus with scar. There was some drainage that was coming out through there. The patient had also multiple other previous surgeries. I explained to the patient that I would raise a low transverse abdominal flap as the cutaneous flap, elevate the flap , access to the entire abdominal wall, repair of the hernia, and did abdominal wall reconstruction with him. I warned her that based on her incarcerated hernia , she will likely lose her umbilicus and I performed an umbilectomy and will reconstruct the umbilicus at a later time. Explicit postoperative instructions, risks, and benefits were fully discussed and all questions were answered. I will dictate an operative report. Michele Becerra MD
== END 2018-11-09 15:20 | disposition home or self-care (01) | DRG 355 ==
LOC: H.ER 08:08 → H.ERHOLD 13:44 → H.ER 14:00 → H.MEDSURG1 21:08 → H.PEDS 11-05 08:50
PROVIDERS: ADMIT Obstetrics & Gynecology Reproductive Endocrinology; ATTEND Obstetrics & Gynecology Reproductive Endocrinology
PROC: 0JX80ZZ Transfer Abdomen Subcutaneous Tissue and Fascia, Open Approach (ICD-10-PCS; 2018-11-04)
PROC: 0JH80VZ Insertion of Infusion Pump into Abdomen Subcutaneous Tissue and Fascia, Open Approach (ICD-10-PCS; 2018-11-04)
PROC: 0WUF0JZ Supplement Abdominal Wall with Synthetic Substitute, Open Approach (ICD-10-PCS; principal; 2018-11-04 13:30)
PROC: 0WBF0ZZ Excision of Abdominal Wall, Open Approach (ICD-10-PCS; 2018-11-04 13:30)
DX: K43.0 Incisional hernia with obstruction, without gangrene (principal); Z91.011 Allergy to milk products; Z91.013 Allergy to seafood; Z91.018 Allergy to other foods; L29.9 Pruritus, unspecified; Z79.890 Hormone replacement therapy; L90.5 Scar conditions and fibrosis of skin; E03.9 Hypothyroidism, unspecified; M62.08 Separation of muscle (nontraumatic), other site; E65 Localized adiposity

== ENCOUNTER 2018-11-12 11:16 | Emergency (ER) | payer BC ==
[2018-11-12 11:16] VITALS: BMI 32.4
[2018-11-12 11:59] VITALS: TEMP 98.3
[2018-11-12] MEDS ORDERED: Sodium Chloride 0.9% 1,000 ML IV STA (13:50)
[2018-11-12] MEDS ORDERED: Iohexol 240 (50 ml) PO ONE (13:52)
--- NOTE | 2018-11-12 13:59 | ED PDOC ---
HPI: Abdomen Time Seen by Provider: 11/12/18 13:20 Chief Complaint (Nursing): GI Problem Chief Complaint (Provider): GI Problem History Per: Patient History/Exam Limitations: no limitations Additional Complaint(s): 42 year old female with medical history of PCOS and thyroid disease, presents to the emergency department with a complaint of diffuse abdominal pain that comes as goes status post hernia repair surgery on 11/04/18. Patient states she experienced abdominal pain and pressure following her discharge from the hospital on 11/09/18 but attributed symptoms to tight placement of hernia belt. She further reports associated sweats, nausea, vomiting, diarrhea, vomiting, and decreased appetite since yesterday. Of note, patient has stopped her Colace and pain medications since symptoms became worse. PCP: Dr. Santino Turk Hernia surgeron: Dr. Miguelito Davis Past Medical History Reviewed: Historical Data, Nursing Documentation, Vital Signs Vital Signs: Last Vital Signs Temp 98.3 F 11/12/18 11:53 Pulse 99 H 11/12/18 11:53 Resp 17 11/12/18 11:53 BP 125/100 H 11/12/18 11:53 Pulse Ox 96 11/12/18 11:53 Primary Care Provider: Santino Turk - Medical History PMH: Denies: Chronic Kidney Disease - Surgical History Surgical History: Hernia Repair - Family History Family History: States: Unknown Family Hx - Immunization History Hx Tetanus Toxoid Vaccination: No Hx Influenza Vaccination: No Hx Pneumococcal Vaccination: No - Home Medications Home Medications: Ambulatory Orders Medication Instructions Recorded Levothyroxine [Synthroid] 75 mcg PO DAILY 01/02/18 metFORMIN [glucOPHAGE] 500 mg PO BID 01/02/18 Albuterol/Ipratropium [Duoneb 3 3 ml INH RQ6 PRN #30 neb 11/09/18 mg/0.5 mg (3 ml) UD] - Allergies Allergies/Adverse Reactions: Allergies Allergy/AdvReac Type Severity Reaction Status Date / Time gluten Allergy VOMITING Verified 11/04/18 08:35 shellfish derived Allergy ANAPHYLAXIS Verified 11/04/18 08:35 soy Allergy VOMITING Verified 11/06/18 16:25 ondansetron [From Zofran] AdvReac Intermediate DIZZINESS Verified 11/04/18 08:35 dairy Allergy URTICARIA Uncoded 11/06/18 16:25 paper tape Allergy URTICARIA Uncoded 11/04/18 08:35 Review of Systems ROS Statement: Except As Marked, All Systems Reviewed And Found Negative Constitutional: Positive for: Sweats Gastrointestinal: Positive for: Nausea, Vomiting, Abdominal Pain, Diarrhea, Other (decreased appetite) Physical Exam - Reviewed Nursing Documentation Reviewed: Yes Vital Signs Reviewed: Yes - Physical Exam Appears: Positive for: No Acute Distress Head Exam: Positive for: ATRAUMATIC, NORMAL INSPECTION, NORMOCEPHALIC Skin: Positive for: Normal Color, Warm, DRY Eye Exam: Positive for: EOMI, Normal appearance, PERRL ENT: Positive for: Normal ENT Inspection Neck: Positive for: Normal, Painless ROM Cardiovascular/Chest: Positive for: Regular Rate, Rhythm Respiratory: Positive for: Normal Breath Sounds. Negative for: Respiratory Distress Pulses-Radial (L): 2+ Pulses-Radial (R): 2+ Gastrointestinal/Abdominal: Positive for: Tenderness (diffusely; drain noted to lower abdomen with dark-colored fluid). Negative for: Other (erythema surr ounding bandages) Back: Positive for: Normal Inspection. Negative for: L CVA Tenderness, R CVA Tenderness Extremity: Positive for: Normal ROM Neurological/Psych: Positive for: Awake, Alert, Normal Tone, Symmetric/Intact Strength. Negative for: Motor/Sensory Deficits - Laboratory Results Result Diagrams: 11/12/18 14:40 - ECG O2 Sat by Pulse Oximetry: 96 (RA) Pulse Ox Interpretation: Normal - Progress ED Course And Treament: 1500: Dr. Barrera to fu on labs and imaging. Medical Decision Making Medical Decision Making: Time: 1337 Initial Plan: * Labs including UA * CT ABD/pelvis * XR obstructive series * IV fluids * Omnipaque 240 PO * Reglan IV * Toradol IVP * Urine/blood culture Time: 1340 --Spoke to Dr. Santino Brown who works close with Dr. Davis. Recommends CT ABD/pelvis, labs, angiotube, and possible forde. --Discussed plan with patient. She is refusing NG tube and will attempt to tolerate some PO contrast. Additionally, she reports multiple allergies to pain medication. Time: 1355 --Case discussed with Dr. Davis ([phone]) who agrees with current plan and management. Requesting to be kept in the loop of ED progress. Scribe Attestation: Documented by Dania Abad, acting as a scribe for Jayjay Martinez MD. Provider Scribe Attestation: All medical record entries made by the Scribe were at my direction and personally dictated by me. I have reviewed the chart and agree that the record accurately reflects my personal performance of the history, physical exam, medical decision making, and the department course for this patient. I have also personally directed, reviewed, and agree with the discharge instructions and disposition. Disposition - Clinical Impression Clinical Impression: Abdominal pain - Patient ED Disposition Is Patient to be Admitted: Transfer of Care - Disposition Disposition Time: 15:09 Condition: STABLE Patient Signed Over To: Vishal Barrera
[2018-11-12] MEDS ORDERED: Iohexol 240 (50 ml) ONE (14:43)
[2018-11-12 14:44] LABS: BASO % 0.4 % (0.0-2.0); EOS # 0.3 K/uL (0.0-0.7); EOS % 2.4 % (0.0-4.0); HEMOGLOBIN 11.9 g/dL (12.0-16.0); LYMPH # 2.2 K/uL (1.0-4.3); LYMPH % 16.3 % (20.0-40.0); MEAN CELL VOLUME 88.4 fl (81.0-99.0); MEAN CORPUSCULAR HEMOGLOBIN 29.2 pg (27.0-31.0); MEAN CORPUSCULAR HGB CONC 33.1 g/dL (33.0-37.0); MEAN PLATELET VOLUME 8.4 fl (7.2-11.7); MONO # 0.7 K/uL (0.0-0.8); MONO % 5.6 % (0.0-10.0); NEUT # 10.1 K/uL (1.8-7.0); NEUT % 75.3 % (50.0-75.0); RBC 4.08 Mil/uL (3.80-5.20); RED CELL DISTRIBUTION WIDTH 12.9 % (11.5-14.5); WHITE BLOOD COUNT 13.3 K/uL (4.8-10.8)
[2018-11-12 14:50] LABS: INR 1.2; PROTHROMBIN TIME 13.2 Seconds (9.8-13.1)
[2018-11-12 14:53] LABS: PARTIAL THROMBOPLASTIN TIME 37.6 Seconds (25.6-37.1)
[2018-11-12 15:03] LABS: VENOUS BLOOD GAS BASE EXCESS 2.5 mmol/L (0.0-2.0); VENOUS BLOOD GAS PCO2 48 mmHg (40-60); VENOUS BLOOD GAS PO2 21 mm/Hg (30-55); VENOUS BLOOD PH 7.38 (7.32-7.43)
[2018-11-12 15:08] LABS: ALB/GLOB RATIO 1.3 (1.0-2.1); ALBUMIN 4.4 g/dL (3.5-5.0); ALT/SGPT 67 U/L (9-52); AST/SGOT 62 U/L (14-36); BLOOD UREA NITROGEN 10 mg/dl (7-17); CALCIUM 9.5 mg/dL (8.4-10.2); GFR NON-AFRICAN AMERICAN > 60; LIPASE 87 U/L (23-300)
--- NOTE | 2018-11-12 15:13 | ED PDOC ---
- Laboratory Results Result Diagrams: 11/12/18 14:40 11/12/18 14:40 Lab Results: pO2 21 mm/Hg (30-55) L 11/12/18 15:00 VBG pH 7.38 (7.32-7.43) 11/12/18 15:00 VBG pCO2 48 mmHg (40-60) 11/12/18 15:00 VBG HCO3 25.1 mmol/L 11/12/18 15:00 VBG Total CO2 29.9 mmol/L (22-28) H 11/12/18 15:00 VBG O2 Sat (Calc) 34.7 % (40-65) L 11/12/18 15:00 VBG Base Excess 2.5 mmol/L (0.0-2.0) H 11/12/18 15:00 VBG Potassium 4.1 mmol/L (3.6-5.2) 11/12/18 15:00 Sodium 139.0 mmol/L (132-148) 11/12/18 15:00 Chloride 102.0 mmol/L (98-107) 11/12/18 15:00 Glucose 94 mg/dL (65-105) 11/12/18 15:00 Lactate 1.0 mmol/L (0.7-2.1) 11/12/18 15:00 FiO2 21.0 % 11/12/18 15:00 PT 13.2 Seconds (9.8-13.1) H 11/12/18 14:40 INR 1.2 11/12/18 14:40 APTT 37.6 Seconds (25.6-37.1) H 11/12/18 14:40 Total Bilirubin 0.4 mg/dl (0.2-1.3) 11/12/18 14:40 AST 62 U/L (14-36) H D 11/12/18 14:40 ALT 67 U/L (9-52) H D 11/12/18 14:40 Alkaline Phosphatase 79 U/L (38-126) 11/12/18 14:40 Total Protein 7.9 G/DL (6.3-8.2) 11/12/18 14:40 Albumin 4.4 g/dL (3.5-5.0) 11/12/18 14:40 Globulin 3.5 gm/dL (2.2-3.9) 11/12/18 14:40 Albumin/Globulin Ratio 1.3 (1.0-2.1) 11/12/18 14:40 Lipase 87 U/L (23-300) 11/12/18 14:40 - ECG O2 Sat by Pulse Oximetry: 96 (RA) Medical Decision Making Medical Decision Makin Patient care endorsed from Dr. Martinez to this provider pending ED workup and a follow up discussion with Dr. Turk and Dr. Brown. 173 CT FINDINGS: LOWER THORAX: Dependent infiltrates/atelectasis identified in both bases. LIVER: Indeterminate mass segment 8, right hepatic lobe 1.8 x 2 cm. Mean Hounsfield values 48. GALLBLADDER AND BILE DUCTS: Unremarkable. PANCREAS: Unremarkable. No gross lesion or ductal dilatation. SPLEEN: Unremarkable. ADRENALS: Unremarkable. No mass. KIDNEYS AND URETERS: Unremarkable. No hydronephrosis. No solid mass. VASCULATURE: Unremarkable. No aortic aneurysm. No atherosclerotic calcification or mural plaque present. BOWEL: Although there underfilling of the colon, findings particularly in the rectum, sigmoid and descending colon suggest a component of colitis. The more distended, contrast filled ascending colon is uninvolved to the point of the hepatic flexure. Transverse colon show similar findings. APPENDIX: Normal appendix. PERITONEUM: Unremarkable. No free fluid. No free air. LYMPH NODES: Unremarkable. No enlarged lymph nodes. BLADDER: Unremarkable. REPRODUCTIVE: Unremarkable. BONES: No acute fracture. OTHER FINDINGS: Postoperative changes anterior abdominal wall. Surgical drains are evident. Midline soft tissue mass extending from the rectus muscle to the peritoneal reflection likely operative hematoma. This extends over a cephalocaudal distance of 16 cm. Orthogonal midline measurements 3.7 x 8 cm. No discrete, drainable collection otherwise identified. IMPRESSION: Extensive anterior abdominal wall/rectus soft tissue findings at the surgical site of previously identified umbilical hernia surgery. There are small foci of air within the rectus muscle. There are multiple surgical drains identified. No intraperitoneal extension. Thickening of the wall of the colon as described. Colitis should be considered. Indeterminate mass right hepatic lobe approximately 2 cm. In the absence of comparison studies, elective follow-up recommended. Lower lobe infiltrates/atelectasis presumed to be postoperative. 174 XR FINDINGS: CHEST: Lungs: Lower lobe atelectasis/infiltrates. Cardiovascular: Normal size heart. No pulmonary vascular congestion. No aortic atherosclerotic calcification present Pleura: No pleural fluid. No pneumothorax. Other findings: None. ABDOMEN AND PELVIS: Bowel: Unremarkable bowel gas pattern. No evidence of mechanical obstruction. Free air: None. Bones: Unremarkable. Other findings: None. IMPRESSION: Lower lobe infiltrates/presumed postoperative atelectasis. Nonspecific bowel gas pattern. [address] Turk who states he will come to ED to speak with patient. Pending his consult. Patient made aware he is coming and also discussed imaging findings with her. [address] Turk, who reviewed images in the ER by himself and also discussed with original titon, the patient is to follow up with Dr. Interiano tomorrow and be sent home with Clindamycin 600mg script. pt agreeable to plan. she really wants to go home. she also requesting presciption for reglan, as she can not take zofran. ------ Scribe Attestation: Documented by Lizbet Sotelo, acting as a scribe for Vishal Barrera MD. Provider Scribe Attestation: All medical record entries made by the Scribe were at my direction and personally dictated by me. I have reviewed the chart and agree that the record accurately reflects my personal performance of the history, physical exam, medical decision making, and the department course for this patient. I have also personally directed, reviewed, and agree with the discharge instructions and dis position. Disposition Counseled Patient/Family Regarding: Studies Performed, Diagnosis, Need For Followup - Clinical Impression Clinical Impression: Abdominal pain, Post-op pain - POA Present On Arrival: None - Disposition Disposition: Routine/Home Disposition Time: 18:30 Condition: IMPROVED Additional Instructions: follow up with Dr Interiano tomorrow return to the ED with any worsening or concerning symptoms Prescriptions: Clindamycin [Cleocin] 600 mg PO QID #28 cap Metoclopramide HCl [Reglan] 10 mg PO Q6H PRN #6 tablet PRN Reason: Nausea/Vomiting Instructions: Postoperative Pain (DC) Forms: [employer] (Scottish)
[2018-11-12] MEDS ORDERED: Sodium Chloride 0.9% 50 ML IV ONE (17:14)
[2018-11-12] MEDS ORDERED: Iohexol 300 100 ML IJ ONE (17:14)
--- NOTE | 2018-11-12 18:04 | RAD ---
Date of service: 11/12/2018 PROCEDURE: Radiographs of the chest and abdomen (obstructive series) HISTORY: Abdominal pain COMPARISON: . November 12, 2018. TECHNIQUE: AP radiograph of the chest, with upright and supine radiographs of the abdomen. 3 views obtained. FINDINGS: CHEST: Lungs: Lower lobe atelectasis/infiltrates. Cardiovascular: Normal size heart. No pulmonary vascular congestion. No aortic atherosclerotic calcification present Pleura: No pleural fluid. No pneumothorax. Other findings: None. ABDOMEN AND PELVIS: Bowel: Unremarkable bowel gas pattern. No evidence of mechanical obstruction. Free air: None. Bones: Unremarkable. Other findings: None. IMPRESSION: Lower lobe infiltrates/presumed postoperative atelectasis. Nonspecific bowel gas pattern.
--- NOTE | 2018-11-12 18:06 | CT ---
Date of service: 11/12/2018 PROCEDURE: CT Abdomen and Pelvis with contrast HISTORY: Abdominal pain and vomiting. COMPARISON: 11/04/2018. Abdominal ultrasound TECHNIQUE: Intravenous contrast dose: 95 cc Omnipaque 300. Radiation dose: Total exam DLP = 755.26 mGy-cm. This CT exam was performed using one or more of the following dose reduction techniques: Automated exposure control, adjustment of the mA and/or kV according to patient size, and/or use of iterative reconstruction technique. FINDINGS: LOWER THORAX: Dependent infiltrates/atelectasis identified in both bases. LIVER: Indeterminate mass segment 8, right hepatic lobe 1.8 x 2 cm. Mean Hounsfield values 48. GALLBLADDER AND BILE DUCTS: Unremarkable. PANCREAS: Unremarkable. No gross lesion or ductal dilatation. SPLEEN: Unremarkable. ADRENALS: Unremarkable. No mass. KIDNEYS AND URETERS: Unremarkable. No hydronephrosis. No solid mass. VASCULATURE: Unremarkable. No aortic aneurysm. No atherosclerotic calcification or mural plaque present. BOWEL: Although there underfilling of the colon, findings particularly in the rectum, sigmoid and descending colon suggest a component of colitis. The more distended, contrast filled ascending colon is uninvolved to the point of the hepatic flexure. Transverse colon show similar findings. APPENDIX: Normal appendix. PERITONEUM: Unremarkable. No free fluid. No free air. LYMPH NODES: Unremarkable. No enlarged lymph nodes. BLADDER: Unremarkable. REPRODUCTIVE: Unremarkable. BONES: No acute fracture. OTHER FINDINGS: Postoperative changes anterior abdominal wall. Surgical drains are evident. Midline soft tissue mass extending from the rectus muscle to the peritoneal reflection likely operative hematoma. This extends over a cephalocaudal distance of 16 cm. Orthogonal midline measurements 3.7 x 8 cm. No discrete, drainable collection otherwise identified. IMPRESSION: Extensive anterior abdominal wall/rectus soft tissue findings at the surgical site of previously identified umbilical hernia surgery. There are small foci of air within the rectus muscle. There are multiple surgical drains identified. No intraperitoneal extension. Thickening of the wall of the colon as described. Colitis should be considered. Indeterminate mass right hepatic lobe approximately 2 cm. In the absence of comparison studies, elective follow-up recommended. Lower lobe infiltrates/atelectasis presumed to be postoperative.
[2018-11-12 19:38] VITALS: BP 101/75; PULSE 85; RESP 18
[2018-11-12 21:00] VITALS: O2SAT 96
== END 2018-11-12 19:57 | disposition home or self-care (01) ==
LOC: H.ER 11:16
DX: R10.9 Unspecified abdominal pain (principal); G89.18 Other acute postprocedural pain
CPT/HCPCS: 74022; 74177; 80053; 82803; 83690; 85025; 85610; 85730; 87040; 96361; 96365; 96375; 99285; J1885; J2765; J7030; Q9966; Q9967